=== PATIENT | male | born 1980 | race African-American/Black ===

== ENCOUNTER 2017-01-15 21:20 | Emergency (ER) | payer OTHER ==
[~2017-01-15 21:20] MED LIST: RISP.25 IM; Z.0.NO CURRENT MEDS
[2017-01-15 21:21] VITALS: BP 139/79; PULSE 81; RESP 16; TEMP 98.7; O2SAT 95
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
[2017-01-15] MEDS ORDERED: TETANUS/DIPHTHERIA TOXOID ADULT 0.5 ML VIAL IM ONE (22:30)
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
[2017-01-15] MEDS ORDERED: CEPH-460 PO (23:02)
--- NOTE | 2017-01-15 23:02 | RADRPT ---
EXAM DATE/TIME: 01/15/2017 22:23 [facility] COMPARISON: No previous studies available for comparison. INDICATIONS : Right hand first digit laceration. MEDICAL HISTORY : None. SURGICAL HISTORY : None. ENCOUNTER: Initial ACUITY: 1 day PAIN SCORE: 4/10 LOCATION: Right hand, first digit. FINDINGS: Examination of the first digit of the right hand demonstrates no evidence of fracture or dislocation. No radiopaque foreign bodies are seen. The soft tissues are intact. CONCLUSION: No acute disease. Brijesh Jean MD on January 15, 2017 at 22:59 Board Certified Radiologist. This report was verified electronically.
== END 2017-01-15 23:13 | disposition home or self-care (01) ==
LOC: NEPK 21:20
DX: S61.011A Laceration without foreign body of right thumb without damage to nail, initial encounter (principal); W26.0XXA Contact with knife, initial encounter; Y93.G1 Activity, food preparation and clean up; Y99.0 Civilian activity done for income or pay
CPT/HCPCS: 73140; 90471